=== PATIENT | male | born 1980 | race Caucasian/White ===

== ENCOUNTER 2017-12-15 17:18 | Emergency (ER) | payer OTHER ==
[~2017-12-15] VITALS: Ht 190.5 cm; Wt 120.2 kg
[~2017-12-15 17:18] MED LIST: AFRIN15 ML NS; ANUSOL-HC30 GM RC; AUGMENTIN 875875 MG PO; BACTRIM DS TAB1 EACH PO; CIPROFLOXIN HC2.5 M1 OPHTHALMIC; CLEOCIN HCL300 MG PO; FLEXERIL PO; HYDROCODONE-AP1 EAC6 PO; IBUPROFEN 800800 M1 PO; LORTAB 7.5/5001 TA1 PO; NAPROSYN500 MG PO; NOHOMEMEDICATIONS; NORCO 5-325 TA1 EACH PO; PENICILLIN VK250 MG PO; PENICILLIN VK500 M1 PO; POLYMYXIN B/TMP10 ML OP; PREDNISONE 10 M10 MG PO; ZPAK PO
[2017-12-15] MEDS ORDERED: CLEOCIN HCL150 MG PO (18:04)
[2017-12-15] MEDS ORDERED: HYDROCODONE-AP1 EAC6 PO (18:04)
[2017-12-15 18:11] VITALS: BP 150/90
== END 2017-12-15 18:12 | disposition home or self-care (01) ==
LOC: M.ERS 17:18
DX: K04.7 Periapical abscess without sinus (principal); F17.210 Nicotine dependence, cigarettes, uncomplicated; Z88.8 Allergy status to other drugs, medicaments and biological substances

== ENCOUNTER 2020-12-20 07:17 | Emergency (ER) | payer OTHER ==
[~2020-12-20] VITALS: Ht 190.5 cm; Wt 117.9 kg
[~2020-12-20 07:17] MED LIST changes: +CLEOCIN HCL150 MG PO
[2020-12-20 07:20] VITALS: BP 144/81
[2020-12-20] MEDS ORDERED: MOBIC7.5 MG PO (07:36)
[2020-12-20] MEDS ORDERED: CLINDAMYCIN HC300 MG PO (07:36)
== END 2020-12-20 07:50 | disposition home or self-care (01) ==
LOC: M.ERS 07:17
DX: K04.7 Periapical abscess without sinus (principal); F17.210 Nicotine dependence, cigarettes, uncomplicated; Z88.8 Allergy status to other drugs, medicaments and biological substances